=== PATIENT | male | born 1935 | race Caucasian/White ===

== ENCOUNTER 2017-03-27 11:36 | Emergency (ER) | payer OTHER ==
[~2017-03-27] VITALS: Ht 177.8 cm; Wt 106.0 kg
[2017-03-27 11:37] VITALS: BP 141/94; PULSE 130; RESP 18; TEMP 98.2; O2SAT 96
[2017-03-27] MEDS ORDERED: TRIAM.1%T TOPICAL (12:05)
[2017-03-27] MEDS ORDERED: MUPI2%T TOPICAL (12:05)
[2017-03-27] MEDS ORDERED: CITA10TA4 PO (12:11)
[2017-03-27] MEDS ORDERED: OMEP40CA2 PO (12:11)
[2017-03-27] MEDS ORDERED: PRAD150C PO (12:11)
[2017-03-27] MEDS ORDERED: CART120C PO (12:11)
[2017-03-27] MEDS ORDERED: ATOR20TA15 PO (12:11)
[2017-03-27] MEDS ORDERED: LOSA100T PO (12:11)
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
== END 2017-03-27 12:31 | disposition home or self-care (01) ==
LOC: PHEFT 11:36
DX: B35.6 Tinea cruris (principal); I48.91 Unspecified atrial fibrillation
CPT/HCPCS: 99282